=== PATIENT | female | born 1935 | race Caucasian/White ===

== ENCOUNTER 2018-03-14 20:25 | Emergency (ER) | payer MEDICAID ==
[~2018-03-14] VITALS: Ht 157.5 cm; Wt 61.6 kg
[2018-03-14] MEDS ORDERED: METF-960 PO (20:41)
[2018-03-14] MEDS ORDERED: METO50 PO (20:41)
[2018-03-14] MEDS ORDERED: LISI-661 PO (20:41)
[2018-03-14] MEDS ORDERED: FURO40I IM (20:41)
[2018-03-14] MEDS ORDERED: ATOR40TA28 PO (20:41)
[2018-03-14] MEDS ORDERED: APIX5TAB PO (20:41)
[2018-03-14] MEDS ORDERED: AMIO200T44 PO (20:41)
[2018-03-14 21:24] LABS: BASOPHILS % (AUTO) 0.3 % (0.0-2.0); EOSINOPHILS % (AUTO) 5.3 % (1.0-6.0); HEMOGLOBIN 13.1 g/dL (12.0-16.0); LYMPHOCYTES # (AUTO) 0.7 K/uL (1.0-4.8); LYMPHOCYTES % (AUTO) 11.6 % (22.0-44.0); MEAN CORPUSCULAR HEMOGLOBIN 29.8 pg (26.0-34.0); MEAN CORPUSCULAR HGB CONC 32.8 G/dL (31.0-37.0); MEAN CORPUSCULAR VOLUME 91 fL (80-100); MONOCYTES # (AUTO) 0.4 K/uL (0.1-1.0); MONOCYTES % (AUTO) 6.1 % (2.0-9.0); NEUTROPHILS # (AUTO) 4.7 K/uL (1.8-7.7); NEUTROPHILS % (AUTO) 76.7 % (40.0-70.0); PLATELET COUNT (AUTO) 219 K/uL (150-450); RED BLOOD CELL COUNT(AUTO) 4.41 MIL/uL (4.00-5.20); RED CELL DISTRIBUTION WIDTH 17.2 % (11.5-14.5)
[2018-03-14 21:31] LABS: INR 1.2 (0.9-1.1)
[2018-03-14 21:59] LABS: CALCIUM, TOTAL 8.7 mg/dL (8.8-10.5); CREATININE 1.2 mg/dL (0.60-1.30); POTASSIUM 3.5 mmol/L (3.5-5.1)
[2018-03-14 22:06] LABS: ALBUMIN 3.2 g/dL (3.4-5.0); BILIRUBIN,TOTAL 0.6 mg/dL (0.1-1.0); TOTAL PROTEIN, SERUM 7.9 g/dL (6.4-8.2)
[2018-03-14 23:27] LABS: APPEARANCE,URINE CLOUDY (CLEAR); BILIRUBIN,URINE NEGATIVE (NEGATIVE); GLUCOSE, URINE (UA) 100 mg/dL (NEGATIVE); KETONES,URINE NEGATIVE (NEGATIVE); LEUKOCYTE ESTERASE ,URINE SMALL (NEGATIVE); NITRATE,URINE NEGATIVE (NEGATIVE); OCCULT BLOOD,URINE TRACE (NEGATIVE); PROTEIN,URINE NEGATIVE (NEGATIVE); UROBILINOGEN,URINE 0.2 mg/dL (<=1.0)
[2018-03-14 23:32] LABS: BACTERIA,URINE Moderate /HPF (None Seen); SQUAMOUS EPITHELIAL CELL,UR Moderate /LPF (None Seen)
[2018-03-15] MEDS ORDERED: SODIUM CHLORIDE 0.9% 500 ML IV ONE (00:45)
[2018-03-15] MEDS ORDERED: INSLAN SQ (00:45)
[2018-03-15 00:49] LABS: GLUCOSE,POINT OF CARE 61 MG/DL (70-110)
[2018-03-15 01:24] LABS: GLUCOSE,POINT OF CARE 99 MG/DL (70-110)
[2018-03-15 01:34] LABS: GLUCOSE,POINT OF CARE 107 MG/DL (70-110)
[2018-03-15 01:51] VITALS: BP 104/68
== END 2018-03-15 02:07 | disposition home or self-care (01) ==
LOC: EMS 20:26
DX: E11.649 Type 2 diabetes mellitus with hypoglycemia without coma (principal); I48.91 Unspecified atrial fibrillation; I10 Essential (primary) hypertension; Z89.511 Acquired absence of right leg below knee; Z79.899 Other long term (current) drug therapy; Z88.0 Allergy status to penicillin; Z79.4 Long term (current) use of insulin
CPT/HCPCS: 36415; 71045; 80053; 81001; 82550; 82962; 83605; 83880; 84484; 85025; 85610; 85730; 87040; 87077; 87086; 87186; 93005; 96360; 99285; J7040